=== PATIENT | male | born 1995 | race Caucasian/White ===

== ENCOUNTER 2019-08-07 12:14 | Emergency (ER) | payer OTHER ==
[~2019-08-07] VITALS: Ht 185.4 cm; Wt 69.6 kg
--- NOTE | 2019-08-07 12:56 | NUR ---
PT STATES MOOD SWINGS THAT HE ESPECIALLY NOTICES WHEN HE EATS POORLY, HARD TIME CONCENTRATING AND FEELS UNCOMFORTABLE SOCIALIZING. PT CONCERNED IT MAY BE HIS LIVER. ADDITIONALLY STATES HE USED LSD 4 YEARS AGO AND FEELS LIKE IT IS STILL IN HIS BODY
[2019-08-07 13:13] LABS: BASOPHILS # (AUTO) 0.02 x10^3/uL (0-0.1); BASOPHILS % (AUTO) 0 % (0-1); EOSINOPHILS # (AUTO) 0.16 x10^3/uL (0-0.4); EOSINOPHILS % (AUTO) 4 % (1-7); LYMPHOCYTES # (AUTO) 1.13 x10^3/uL (1-3.4); LYMPHOCYTES % (AUTO) 25 % (22-44); MD NO; MEAN CORPUSCULAR HEMOGLOBIN 30.8 pg (27.5-34.5); MEAN CORPUSCULAR HGB CONC 33.8 g/dL (33.2-36.2); MEAN CORPUSCULAR VOLUME 91.2 fL (81-97); MEAN PLATELET VOLUME 9.1 fL (7.4-10.4); MONOCYTES # (AUTO) 0.32 x10^3/uL (0.2-0.8); MONOCYTES % (AUTO) 7 % (2-9); NEUTROPHILS # (AUTO) 2.85 x10^3/uL (1.8-6.8); NEUTROPHILS % (AUTO) 64 % (42-75); PLATELET COUNT 164 x10^3/uL (130-400); RED CELL DISTRIBUTION WIDTH 12.7 % (9.4-14.8)
[2019-08-07 13:20] LABS: INTERNATIONAL NORMALIZED RATIO 1.09 (0.93-1.1); PROTHROMBIN TIME 11.4 Seconds (9.6-11.5)
[2019-08-07 13:25] LABS: ALANINE AMINOTRANSFERASE 31 U/L (12-78); ANION GAP 7 mmol/L (5-15); CALCIUM 8.9 mg/dL (8.5-10.1); CHLORIDE 108 mmol/L (98-107); CREATININE 1.04 mg/dL (0.7-1.3)
[2019-08-07 13:28] LABS: ALKALINE PHOSPHATASE 52 U/L (45-117); TOTAL PROTEIN 7.6 g/dL (6.4-8.2)
--- NOTE | 2019-08-07 13:35 | NUR ---
PATIENT RESTING IN BED.
--- NOTE | 2019-08-07 14:10 | NUR ---
CONTINUES TO REST WITH EYES CLOSED WHILE AWAITING RE-EVAL
--- NOTE | 2019-08-07 15:05 | NUR ---
SASHA SAHNI PA SPEAKING WITH PT
[2019-08-07] MEDS ORDERED: ARIPIPRAZOLE 5 MG TABLET ONE (16:11)
[2019-08-07 16:27] VITALS: BP 130/83
[2019-08-07] MEDS ORDERED: ARIPIPRAZOLE 10 MG TABLET PO SCH (16:30)
== END 2019-08-07 16:41 | disposition home or self-care (01) ==
LOC: ED 13:17
DX: F20.0 Paranoid schizophrenia (principal)
CPT/HCPCS: 36415; 80053; 82140; 83690; 85025; 85610; 99283